=== PATIENT | male | born 1995 | race Caucasian/White ===

== ENCOUNTER 2020-01-04 21:53 | Emergency (ER) | payer BC ==
[~2020-01-04] VITALS: Ht 188 cm; Wt 77.1 kg
--- NOTE | ~2020-01-04 | EMS ---
[address] [address] EMS Patient Care Report Name: AMBROSE BOLTON Room #: DEP MARIANNE Marroquin#: [id number] Admission: 01/04/20 Attend Phys: Discharge: 01/04/20 Date of : [birth year] Report #: [id number] THIS REPORT FOR: //name// Report Transmitted: 01/05/2020 00:48 EMS Care Summary [place], [place]/[facility] Incident [id number] @ 01/04/2020 21:25 Incident Location [address] [place] [address] Patient AMBROSE BOLTON Male, 24 Years 1995 Patient Address [address] [place] [address] Patient History Epilepsy, Patient Allergies No known allergies, Patient Medications Depakote, Chief Complaint SEIZURE Disposition Transported No Lights/[place] Dispatch Reason Convulsions/Seizure Transported To [facility] Narrative REC'D CALL FOR SEIZURES. ON ARRIVAL AT THE DIALYSIS [facility] WE WERE MET BY A STAFF MEMBER WHO LED US TO WHERE THE EMPLOYEE WAS LOCATED. PT WAS LAYING ON THE FLOOR WITH SEVERAL FELLOW STAFF MEMEBERS IN ATTENDANCE. STAFF HAD PLACED A NC AT 6 LPM AFTER THE SEIZURE STOPPED. STAFF DESCRIBED A TONIC CLONIC EVENT THAT LASTED APPROX 2 1/2 MINUTES, WITH KNOWN HX OF EPILEPSY. PT WAS ALERT AT [address] [address] EMS Patient Care Report Name: AMBROSE BOLTON Room #: DEP Lopez#: [id number] Admission: 01/04/20 Attend Phys: Discharge: 01/04/20 Date of : [birth year] Report #: [id number] THE TIME OF CONTACT, BUT CONFUSED. PT ASSESSMENT BEGAN. NO INJURIES NOTED. NC AND O2 WERE DISCONNECTED. PT PERSONAL BELONGINGS WERE COLLECTED AND PT WAS ABLE TO STAND WITH ASSISTANCE TO SIT ON THE COT. HE WAS TAKEN OUT TO THE UNIT AND LOADED INTO THE AMB. IV ESTABLISHED AND SECONDARY ASSESSMENT COMPLETED. NO FURTHER SEIZURE ACTIVITY. [facility] RIGHT NEXT DOOR WAS CHOSEN FOR ER DESTINATION. PT REMAINED STABLE. 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 Initial Vitals @21:44P: 119,R: 14,BP: 145/80,Pain: 0/10,GCS: 14,SpO2: 96,Revised Trauma: 12, @21:35P: 114,R: 18,BP: 147/77,Pain: 0/10,GCS: 14,Glucose: 83,SpO2: 100,Revised Trauma: 12, Assessments @21:34MENTAL:Confused,Person Oriented,SKIN:HEENT:Head/Face: No Abnormalities,Neck/Airway: No Abnormalities,LUNG SOUNDS:General: No Abnormalities,ABDOMEN:General: No Abnormalities,PELVIS//GI:No Abnormalities,EXTREMITIES:Capillary Refill: Right Upper: < 2 Sec,Left Arm: No Abnormalities,Right Arm: No Abnormalities,Left Leg: No Abnormalities,Right Leg: No Abnormalities,PULSE:Radial: 3+ Bounding,NEURO:No Abnormalities,@21:40MENTAL:No Abnormalities,SKIN:No Abnormalities,HEENT:Head/Face: No Abnormalities,Neck/Airway: No Abnormalities,LUNG SOUNDS:ABDOMEN:PELVIS//GI:EXTREMITIES:PULSE:NEURO: Impression Seizures Procedures @21:36Normal Saline (.9% NaCl) 10cc (18 ga) Site: Hand-LeftResponse: UnchangedSucceeded@21:37StretcherResponse: Unchanged@21:34ALS AssessmentResponse: UnchangedSucceeded Timeline 21:24,Call Received 21:24,Dispatch Notified 21:25,Dispatched 21:26,En Route 21:31,On Scene 21:34,At Patient 21:34,ALS Assessment,Response: UnchangedSucceeded, 21:35,BP: 147/77 M,PULSE: 114,RR: 18 R,SPO2: 100 Ox,ETCO2: ,B,PAIN: 0,GCS: 14, 21:36,Normal Saline (.9% NaCl) 10cc 18 ga Site: Hand-Left,Response: UnchangedSucceeded, 21:37,Stretcher,Response: Unchanged 21:44,BP: 145/80 M,PULSE: 119,RR: 14 R,SPO2: 96 Ox,ETCO2: ,BG: ,PAIN: 0,GCS: 14, [address] [address] EMS Patient Care Report Name: AMBROSE BOLTON Room #: DEP Lopez#: [id number] Admission: 01/04/20 Attend Phys: Discharge: 01/04/20 Date of : [birth year] Report #: [id number] 21:46,Depart Scene 21:49,At Destination 22:00,Call Closed Disclaimer v1.1 Copyright 2020 [employer] This EMS Care Summary contains data elements from the applicable legal record (which may be displayed differently). It is designed to provide pertinent information for the following purposes: continuity of care, clinical quality, and state data reporting. The complete legal record is available to ED staff and administrators of the receiving hospital in [employer] Patient Tracker. All data is provided "as is."
[~2020-01-04 21:53] MED LIST: KEPPRA 500 MG500 M1 PO
[2020-01-04 22:32] LABS: HEMATOCRIT 46.6 % (42.0-52.0); HEMOGLOBIN 15.6 gm/dL (14.0-18.0); MCH 30.9 pg (26.0-34.0); MCHC 33.5 g/dL (28.0-37.0); MCV 92.2 fL (80.0-100.0); PLATELET COUNT 177 thou/uL (150-400); RBC 5.06 mil/uL (4.50-6.00); RDW 13.5 % (10.5-14.5); WBC 7.9 thou/uL (4.0-11.0)
[2020-01-04 22:37] LABS: CALCIUM 8.1 mg/dL (8.5-10.1); CREATININE 1.4 mg/dL (0.7-1.3); POTASSIUM 3.6 mmol/L (3.5-5.1)
[2020-01-04 22:52] VITALS: BP 140/78
[2020-01-04 23:25] LABS: ABSOLUTE NEUTROPHILS 3.2 thou/uL (1.4-8.2)
--- NOTE | 2020-01-05 09:48 | EKG ---
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
== END 2020-01-04 22:55 | disposition home or self-care (01) ==
LOC: ER 21:53
PROVIDERS: Emergency Medicine
DX: G40.909 Epilepsy, unspecified, not intractable, without status epilepticus (principal); Z79.899 Other long term (current) drug therapy